=== PATIENT | female | born 1945 | race Caucasian/White ===

== ENCOUNTER → 2016-12-12 | Outpatient (CLI) | payer MEDICARE, OTHER | LOC: RAD 09:53 | DX: Z09 Encounter for follow-up examination after completed treatment for conditions other than malignant neoplasm (principal); S72.91XD Unspecified fracture of right femur, subsequent encounter for closed fracture with routine healing ==

== ENCOUNTER → 2018-10-30 | Day surgery (SDC) | payer MEDICARE, OTHER | LOC: MSO 12:54 | DX: Z12.11 Encounter for screening for malignant neoplasm of colon (principal); D12.0 Benign neoplasm of cecum; I10 Essential (primary) hypertension; E11.9 Type 2 diabetes mellitus without complications; F32.9 Major depressive disorder, single episode, unspecified; Z86.010 Personal history of colon polyps; Z79.4 Long term (current) use of insulin; Z79.84 Long term (current) use of oral hypoglycemic drugs; Z79.82 Long term (current) use of aspirin; Z79.01 Long term (current) use of anticoagulants; Z91.041 Radiographic dye allergy status; Z88.4 Allergy status to anesthetic agent | CPT/HCPCS: 00811; J2704; J3010; J7030 ==

== ENCOUNTER 2018-12-12 11:06 | Emergency (ER) | payer MEDICARE, OTHER ==
[2018-12-12] MEDS ORDERED: GLUCOPHAGE500 MG/TAB PO (11:12)
[2018-12-12] MEDS ORDERED: PRAVASTATIN SOD20 MG PO (11:12)
[2018-12-12] MEDS ORDERED: HYDROCHLOROTHIA1 T14 PO (11:12)
[2018-12-12] MEDS ORDERED: LANTUS SOLOS100 U/ML SQ (11:12)
[2018-12-12] MEDS ORDERED: CELEXA 20MG20 MG/TA1 PO (11:13)
[2018-12-12 11:54] LABS: BASO # 0.1 (0.02-0.10); EOS % 0.7 % (1.0-5.0); HEMATOCRIT 38.5 % (37.0-47.0); HEMOGLOBIN 12.4 g/dL (12.5-16.0); MEAN CELL VOLUME 84 fl (78-100); MEAN CORPUSCULAR HEMOGLOBIN 27 pg (27-31); MEAN CORPUSCULAR HGB CONC 32 g/dL (33-37); MEAN PLATELET VOLUME 11.3 fl (7.4-10.4); MONO # 0.5 (0.20-0.80); PLATELET COUNT 240 K/mm3 (130-400); RED CELL DISTRIBUTION WIDTH 13.7 % (11.5-14.5); WHITE BLOOD COUNT 4.3 K/mm3 (4.8-10.8)
[2018-12-12 12:04] LABS: CALCIUM 8.7 mg/dL (8.4-10.2); POTASSIUM 3.9 mmol/L (3.6-5.0); TOTAL BILIRUBIN 0.7 mg/dL (0.2-1.3); TOTAL PROTEIN 7.6 g/dL (6.3-8.2)
[2018-12-12 12:08] LABS: LYMPH# 0.6 (1.50-4.00)
[2018-12-12] MEDS ORDERED: ZOFRAN4 M2 PO (13:45)
[2018-12-12 13:51] VITALS: BP 135/68
== END 2018-12-12 13:50 | disposition home or self-care (01) ==
LOC: ED 11:06
PROVIDERS: Nurse Practitioner
DX: A08.4 Viral intestinal infection, unspecified (principal); E11.9 Type 2 diabetes mellitus without complications; I10 Essential (primary) hypertension; Z79.4 Long term (current) use of insulin; Z79.84 Long term (current) use of oral hypoglycemic drugs; Z98.890 Other specified postprocedural states
CPT/HCPCS: J2405; J7030

== ENCOUNTER 2021-12-09 12:07 | Emergency (ER) | payer MEDICARE, OTHER ==
[~2021-12-09] VITALS: Ht 162.6 cm; Wt 81.8 kg
[~2021-12-09 12:07] MED LIST: CELEXA 20MG20 MG/TA1 PO; GLUCOPHAGE500 MG/TAB PO; HYDROCHLOROTHIA1 T14 PO; LANTUS SOLOS100 U/ML SQ; PRAVASTATIN SOD20 MG PO; ZOFRAN4 M2 PO
[2021-12-09] MEDS ORDERED: ASPIRIN E.C. 8181 MG PO (12:23)
[2021-12-09] MEDS ORDERED: LANTUS SOLOS100 U/ML SQ (12:23)
[2021-12-09] MEDS ORDERED: ATORVASTATIN CA40 MG PO (12:23)
[2021-12-09] MEDS ORDERED: LISINOPRIL20 MG PO (12:24)
[2021-12-09] MEDS ORDERED: CELEXA 20MG20 MG/TA1 PO (12:24)
[2021-12-09] MEDS ORDERED: CETIRIZINE HCL10 MG PO (12:24)
[2021-12-09] MEDS ORDERED: AMLODIPINE BESYL5 MG PO (12:24)
[2021-12-09] MEDS ORDERED: TRICOR145 M1 PO (12:25)
[2021-12-09] MEDS ORDERED: PRAVASTATIN SOD20 MG PO (12:25)
[2021-12-09 14:44] VITALS: BP 162/89
== END 2021-12-09 14:42 | disposition home or self-care (01) ==
LOC: ED 12:07
DX: R05.9 Cough, unspecified (principal)

== ENCOUNTER 2024-04-30 09:42 | Emergency (ER) | payer MEDICARE, OTHER ==
[~2024-04-30] VITALS: Ht 157.5 cm; Wt 77.3 kg
[~2024-04-30 09:42] MED LIST changes: +AMLODIPINE BESYL5 MG PO; +ASPIRIN E.C. 8181 MG PO; +ATORVASTATIN CA40 MG PO; +CETIRIZINE HCL10 MG PO; +LISINOPRIL20 MG PO; +TRICOR145 M1 PO
[2024-04-30 10:19] VITALS: BP 180/95
== END 2024-04-30 11:32 | disposition home or self-care (01) ==
LOC: ED 09:42
DX: M25.561 Pain in right knee (principal); M25.562 Pain in left knee; W01.0XXA Fall on same level from slipping, tripping and stumbling without subsequent striking against object, initial encounter